=== PATIENT | female | born 1935 | race Caucasian/White ===

== ENCOUNTER 2020-07-13 15:39 | Emergency (ER) | payer MEDICARE, SELFPAY ==
--- NOTE | ~2020-07-13 | CT_ITS ---
EXAMINATION: CT pelvis wo con EXAM DATE: 07/13/2020 16:46 INDICATION: Fall, left sacral pain. Initial encounter. TECHNIQUE: Spiral CT pelvis wo con was performed pelvis Axial, coronal and sagittal images were revi ewed. The dose-length product (DLP) for this examination was 288.82 mGy-cm. The exposure was tailor ed according to patient size (auto mA exposure control), and iterative reconstruction (ASIR) was used as additional dose reduction technique. There is no prior study for comparison. FINDINGS: There are no acute pelvic or sacral fractures or dislocations identified. There is no subc utaneous gas. The soft tissue is unremarkable. There are no radiopaque foreign bodies. Small bila teral inguinal hernias, the right-sided containing nonobstructed small bowel loop. Mildly aneurysmal mid abdominal aorta up to 3.1 cm. There is extensive sigmoid colonic diverticulosis . There is no adjacent inflammatory change to suggest diverticulitis. IMPRESSION: 1. No acute osseous findings. 2. Mildly aneurysmal abdominal aorta. 3. Colonic diverticulosis. Reviewed, dictated and finalized at location A.
[2020-07-13 16:00] VITALS: BP 195/85; PULSE 74; RESP 20; TEMP 36.7; O2SAT 95
--- NOTE | 2020-07-13 16:04 | ED.BACK ---
HPI - Back Pain/Injury General Chief Complaint: Back Pain/Injury Stated Complaint: back pain History of Present Illness HPI Narrative: Historian: patient and daughter. This 85 y.o. female fell on a gravel driveway on 06/29. She was able to walk afterwards. She developed a lot of pain today in the left buttocks, made worse when pressure is applied or she tries to walk. The pain does not radiate down her leg and she has not weakness or numbness in the leg. She was evaluated by Dr. Rivera a week ago who told the family it was a soft tissue injury. Pt does not remember falling. Daughter states that she has chronic high blood pressure; she can tell from the pill box that her mother does not always take her medication. When recently seen by Dr. Rivera her systolic was 207. He encouraged pt. to take her antihypertensive every day. Related Data Home Medications Medication Instructions Recorded Confirmed chlorthalidone 25 mg PO DAILY 07/13/20 07/13/20 irbesartan 150 mg PO DAILY 07/13/20 07/13/20 metoprolol succinate 25 mg PO DAILY 07/13/20 07/13/20 Review of Systems Constitutional: Constitutional: Denies chills and Denies fever(s) Cardiovascular: Cardiovascular: Denies chest pain Respiratory: Respiratory: Denies dyspnea Gastrointestinal: Gastrointestinal: Denies abdominal pain Genitourinary: Genitourinary: Denies dysuria Musculoskeletal: Musculoskeletal: Reports no additional musculoskeletal complaints Neurologic: Denies Normal hearing present (severe hearing loss) [facility] Past Medical History Medical History (Updated 07/14/20 @ 07:55 by Weston Sullivan MD) Back pain Hypertension Social History Social History (Updated 07/14/20 @ 07:46 by Weston Sullivan MD) Living arrangements: alone Additional living arrangements comments: daughter encourages pt. to move into assisted living, pt. refuses. Exam Narrative: Exam Narrative: Very hard of hearing. Daughter had to repeat my questions, which patient sometimes even then didn't understand. Const: Other: Knows place, month and month. HENMT: Mouth: Yes Normal oral and palatal mucosa present Neck: Neck: no lymphadenopathy Chest: Chest palpation & inspection: normal inspection of the chest Resp: Auscultation: clear to auscultation bilaterally Cardio: Rhythm: regular rhythm GI: Other: soft, nontender. Back/Spine/Pelvis: Thoracic/Lumbar Spine: thoracic and lumbar spine normal to inspection Pelvis: buttock tenderness ( see sacrum) on the left Sacrum: tenderness (left lower medial sacral trenderness.) Extrem: Right upper extremity: normal to inspection Left upper extremity: normal to inspection (no greater trochanter or femoral tenderness. ) Course Course Emergency Course: Pt. able to get out of bed and walk. Elevation of blood pressure is not unusual. Pt has no symptoms. Because etiology is likely non-compliance with meds, daughter will check pill box when they get home and administer if pills are there. Vital Signs Vital signs: Vital Signs Temperature 36.7 C 07/13/20 16:00 Pulse Rate 74 07/13/20 16:00 Respiratory Rate 20 07/13/20 16:00 Blood Pressure 195/85 H 07/13/20 16:00 Pulse Oximetry 95 07/13/20 16:00 Temperature 36.7 C 07/13/20 16:00 Pulse Rate 76 07/13/20 17:50 Respiratory Rate 18 07/13/20 17:50 Blood Pressure 204/114 H 07/13/20 17:50 Pulse Oximetry 97 07/13/20 17:50 MDM - Back Pain/Injury MDM Narrative Medical decision making narrative: No evidence of pelvic fx. Etiology of pain likely soft tissue. Pt. encouraged to f/u with Dr. Rivera in 3 -4 days for recheck and possible P.T. Differential Diagnosis Differential diagnosis: Likely lumbar radiculopathy, strain of lumbar region and other (sacral or hip fx, soft tissue injury) Imaging Data Radiologist's impression: CT pelvis IMPRESSION: 1. No acute osseous findings. 2. Mildly aneurysmal abdominal aorta. 3. Colonic diverti
--- NOTE | 2020-07-13 16:15 | PC.NURSE ---
Asked daughter if she knew patient weight or medications which she did not. PCP office is closed.
--- NOTE | 2020-07-13 16:17 | PC.NURSE ---
Attempted to stand patient, she required assistance to stand and is not able to safely stand on a scale for weight
[2020-07-13 17:50] VITALS: BP 204/114; PULSE 76; RESP 18; O2SAT 97
--- NOTE | 2020-07-13 17:59 | PC.NURSE ---
Discharge BP reviewed with ERP who discussed with family. OK to discharge home. Patient denies pain or GARCIA. Family to monitor closely
== END 2020-07-13 18:03 | disposition home or self-care (01) ==
PROVIDERS: Emergency Provider Family Medicine; PCP Family Medicine
DX: S30.0XXA Contusion of lower back and pelvis, initial encounter (principal); I10 Essential (primary) hypertension; W19.XXXA Unspecified fall, initial encounter
CPT/HCPCS: 72192; 99282; 99284

== ENCOUNTER 2020-08-10 12:39 | Emergency (ER) | payer MEDICARE, SELFPAY ==
--- NOTE | ~2020-08-10 | CT_ITS ---
EXAMINATION: CT lumbar spine wo con DATE: 08/10/2020 13:35 INDICATION: Low back pain post fall TECHNIQUE: Computed tomography (CT) of the lumbar spine was performed without intravenous contrast. A utomated exposure control and iterative reconstruction technique were employed. The dose-length produ ct was 425.39 mGy-cm. COMPARISON: None FINDINGS: Alignment 15 degrees lumbar dextroscoliosis measured between L1 and L4. Mild anterior and l eft-sided vertebral body height loss at L3. Nondisplaced fractures of the left and right sacral ala, acute appearing on the left and subacute appearing on the right. Mild right-sided disc height loss at L4-L5. Remaining disc heights are normal. Fusiform infrarenal abdominal aortic aneurysm measuring up to 4.0 cm in maximal diameter. Multiple diverticula along the sigmoid colon without adjacent inflamm atory change to suggest diverticulitis. The following disc levels are specifically discussed: T11-T12: Disc is minimally bulging. There is mild bilateral facet joint osteoarthritis. There is no n eural foraminal stenosis. There is no central canal stenosis. T12-L1: Disc is minimally bulging. There is mild bilateral facet joint osteoarthritis. There is no ne ural foraminal stenosis. There is no central canal stenosis. L1-L2: Disc is bulging. There is mild bilateral facet joint osteoarthritis. There is mild bilateral n eural foraminal stenosis. There is mild central canal stenosis. L2-L3: Disc is bulging. There is mild to moderate bilateral facet joint osteoarthritis. There is mild bilateral neural foraminal stenosis. There is mild central canal stenosis. L3-L4: Disc is bulging. There is mild bilateral facet joint osteoarthritis. There is mild bilateral n eural foraminal stenosis. There is moderate central canal stenosis. L4-L5: Disc is bulging. There is severe bilateral facet joint osteoarthritis. There is mild bilateral neural foraminal stenosis. There is moderate central canal stenosis. L5-S1: Disc is mildly bulging. There is moderate left and severe right facet joint osteoarthritis. Th ere is old right and minimal left neural foraminal stenosis. There is no central canal stenosis. IMPRESSION: 1. Mild lumbar dextroscoliosis with moderate spondylosis. 2. Nondisplaced bilateral sacral alar fractures, acute on the left and subacute appearing on the righ t. When 3. 4.0 cm fusiform infrarenal abdominal aortic aneurysm. Reviewed, dictated and finalized at location A. IMPRESSION: 1. Mild lumbar dextroscoliosis with moderate spondylosis. 2. Nondisplaced bilateral sacral alar fractures, acute on the left and subacute appearing on the right. When 3. 4.0 cm fusiform infrarenal abdominal aortic aneurysm.
--- NOTE | ~2020-08-10 | CT_ITS ---
EXAMINATION: CT pelvis wo con DATE: 08/10/2020 13:34 INDICATION: Pelvic pain post fall TECHNIQUE: High resolution computed tomography (CT) of the pelvis was performed without intravenous c ontrast. Additional sagittal and coronal reconstructions were performed. Automated exposure control a nd iterative reconstruction technique were employed. The dose-length product was 425.39 mGy-cm. COMPARISON: 07/13/2020 FINDINGS: Acute nondisplaced sagittally oriented fracture extending across the left sacral ala. There is increa sed sclerosis and minimal periosteal reaction at the caudal aspect of an additional nondisplaced like ly subacute fracture of the right sacral ala. There are acute fractures at the medial aspect of the l eft superior and inferior pubic rami and intervening left pubic body. There is approximately 1 cm pos terior superior displacement of the left superior pubic ramus relative to the pubic body. Lesser disp lacement at the anterior pubic ramus fracture. There is a hematoma in the extraperitoneal fat along the cephalad margin of the left superior pubic r amus and extending into the thickened left obturator internus muscle. Small to moderate-sized fat-con taining left inguinal hernia. Bladder, uterus and bilateral adnexa are unremarkable. No free intraper itoneal gas or fluid in the pelvis. There are scattered diverticula along the visualized colon withou t adjacent inflammatory change to suggest diverticulitis. No dilated bowel to suggest obstruction. Pa rtially visualized fusiform infrarenal abdominal aortic aneurysm which measures up to 3.7 cm in maxim al diameter. Severe bilateral lower lumbar facet osteoarthritis. IMPRESSION: 1. Nondisplaced bilateral sacral alar fractures, acute appearing on the left and subacute on the righ t. 2. Mildly displaced acute left superior and inferior pubic rami fractures extending through the pubic body with surrounding hematoma. 3. Partially visualized infrarenal abdominal aortic aneurysm measuring at least 3.7 cm in diameter. Reviewed, dictated and finalized at location A. IMPRESSION: 1. Nondisplaced bilateral sacral alar fractures, acute appearing on the left an d subacute on the right. 2. Mildly displaced acute left superior and inferior pubic rami fractures exten ding through the pubic body with surrounding hematoma. 3. Partially visualized infrarenal abdominal aortic aneurysm measuring at least 3.7 cm in diameter.
--- NOTE | 2020-08-10 12:40 | ED.FALL ---
HPI - Fall General Chief Complaint: Fall Stated Complaint: ambulance Time Seen by Provider: 08/10/20 12:40 Source: patient Mode of arrival: EMS Limitations: no limitations and other ([place]) History of Present Illness HPI Narrative: 85-year-old woman brought to the emergency department by EMS today after she was found on the ground. Patient states that she was walking home and hit some uneven sidewalk that caused her to fall. She denies loss of consciousness, chest pain, shortness of breath, nausea or palpitations. She denies hitting her head. complaint: fall Onset (ago): hour(s) (1) Fall from: standing Fall witnessed: no Place fall occurred: street Loss of consciousness: none Prolonged down time: no Symptoms prior to fall: none Context: tripped/slipped Location of injury: pelvis Location of injury - extremities: Left: thigh Severity: moderate Associated symptoms (after fall): unable to walk Related Data Home Medications Medication Instructions Recorded Confirmed chlorthalidone 25 mg PO DAILY 07/13/20 08/10/20 irbesartan 150 mg PO DAILY 07/13/20 08/10/20 metoprolol succinate 25 mg PO DAILY 07/13/20 08/10/20 Allergies Allergy/AdvReac Type Severity Reaction Status Date / Time No Known Allergies Allergy Verified 08/10/20 12:51 Review of Systems Constitutional: Constitutional: Denies chills and Denies fever(s) Cardiovascular: Cardiovascular: Denies chest pain and Denies rapid heart rate Respiratory: Respiratory: Denies cough and Denies dyspnea Gastrointestinal: Gastrointestinal: Denies abdominal pain, Denies nausea and Denies vomiting Genitourinary: Genitourinary: Denies nocturia and Denies dysuria Musculoskeletal: Musculoskeletal: Denies arthralgias and Denies joint swelling Integumentary/Breasts: Skin/Breast: Denies pruritus, Denies erythema and Denies rash Neurologic: Denies vertigo, Denies dizziness and Denies syncope Allergic/Immunologic: Allergic/Immunologic: Reports lip swelling and Reports wheezing PMFSH Past Medical History Medical History Back pain Hypertension Social History Social History Smoking status: Never smoker Alcohol intake: never Substance use: never Living arrangements: alone Additional living arrangements comments: daughter encourages pt. to move into assisted living, pt. refuses. Occupation/Education: retired Exam Const: General: no acute distress and alert Orientation/consciousness: patient oriented x3 Limitations: other limitations ([place]) HENMT: Head: normal to inspection Ears: external ears normal, TM's normal bilaterally and EAC's normal Mouth: Yes moist mucous membranes Throat: posterior oropharynx normal Neck: Neck: normal visual inspection Other: nontender Chest: Chest palpation & inspection: normal inspection of the chest and no tenderness Resp: Effort & Inspection: normal respiratory effort and not labored Auscultation: clear to auscultation bilaterally, no rales, no rhonchi and no wheezes Cardio: Rate: regular rate Rhythm: regular rhythm Heart sounds: Murmur heart sound present systolic GI: Auscultation: normal bowel sounds Other: Nontender, soft, no guarding Skin: General skin exam: normal color, no jaundice and no pallor Rashes: no rashes Other: Tenderness over the sacrum left more than right. There is no swelling or bruising and the skin is intact. There is tenderness with palpation over the pubis particularly on the left side. There is tenderness with compression of the pelvis laterally. No deformities noted. Neuro: General: patient oriented x3, moves all extremities, no focal motor deficits and CN's II-XI intact bilaterally Speech: normal speech Gait exam (Neuro): Normal gait present Extrem: General: normal to inspection and no clubbing, cyanosis or edema Psych: Appearance: grossly normal and well kempt
[2020-08-10 12:43] VITALS: BP 176/80; PULSE 96; RESP 18; TEMP 36.6; O2SAT 96
--- NOTE | 2020-08-10 12:48 | ECG_ITS ---
Measurements Intervals [place] Rate: 73 P: 96 VA: 197 QRS: -70 QRSD: 182 T: 104 QT: 470 QTc: 519 Interpretive Statements SINUS RHYTHM ATRIAL PREMATURE COMPLEX LEFT AXIS DEVIATION LEFT BUNDLE BRANCH BLOCK BASELINE ARTIFACT- I, III, AVL ABNORMAL ECG Electronically Signed On 08-10-2020 13:35:49 CDT by Shlomo Herrera D.O.
[2020-08-10] MEDS: ONDANSETRON INJ 4 MG/2 ML VIAL IV PUSH (13:01)
[2020-08-10] MEDS: MORPHINE SULFATE 2 MG/ML INJ IV PUSH ×2 (13:01→15:00)
[2020-08-10 13:22] LABS: Basophils Absolute Auto 0.03 K/mm3 (0.00-0.10); Basophils Percent Auto 0.3 % (0.0-1.0); Eosinophils Absolute Auto 0.05 K/mm3 (0.02-0.50); Eosinophils Percent Auto 0.5 % (1.0-6.0); Hematocrit 36.4 % (35.0-42.0); Hemoglobin 11.5 g/dL (11.7-13.8); Immature Granulocyte Absolute 0.07 K/mm3 (0.00-0.00); Immature Granulocyte Percent A 0.7 % (0.0-0.0); Lymphocytes Absolute Auto 0.97 K/mm3 (1.10-4.50); Lymphocytes Percent Auto 10.2 % (18.0-42.0); Mean Corpuscular HGB Conc 31.6 g/dL (32.0-36.0); Mean Corpuscular Volume 98.1 fL (78.0-102.0); Mean Platelet Volume 10.9 fl (9.2-11.8); Monocytes Absolute Auto 0.49 K/mm3 (0.10-0.90); Monocytes Percent Auto 5.1 % (2.0-11.0); Neutrophils Absolute Auto 7.9 K/mm3 (1.7-7.2); Neutrophils Percent Auto 83.2 % (50.0-70.0); Platelet Count Result 148 K/mm3 (150-420); Red Blood Count 3.71 M/mm3 (4.20-5.40); Red Cell Distribution Width 13.9 % (11.6-14.4); White Blood Count 9.6 K/mm3 (4.8-10.8)
[2020-08-10 13:33] LABS: Partial Thromboplastin Time 23.4 SEC (22.3-31.6); Prothrombin Time 10.6 Seconds (9.64-11.0)
--- NOTE | 2020-08-10 13:35 | PC.NURSE ---
Pts daughter contacted with pts permission.
[2020-08-10 13:36] LABS: Alanine Aminotransferase 23 U/L (14-59); Albumin Level 3.5 g/dL (3.4-5.0); Alkaline Phosphatase 89 U/L (46-116); Anion Gap 8 mmol/L (8-16); Aspartate Amino Transferase 18 U/L (15-37); Bilirubin,Total 0.4 mg/dL (0.00-1.00); Blood Urea Nitrogen 42 mg/dL (7-18); Calcium 8.6 mg/dL (8.5-10.1); Carbon Dioxide 28 mmol/L (21-32); Chloride 106 mmol/L (98-108); Creatine Kinase 64 U/L (26-192); Estimated CRCL calculation 25 ml/min; Estimated Glomerular Filt Rate 37; Glucose 132 mg/dL (70-99); Osmolality Calculated 306 mOsm/kg (285-295); Potassium 4.5 mmol/L (3.5-5.1); Sodium 142 mmol/L (136-145); Total Protein 7.2 g/dL (6.4-8.2)
[2020-08-10 14:32] VITALS: BP 168/79; PULSE 82; O2SAT 96
--- NOTE | 2020-08-10 14:44 | PC.NURSE ---
Pt and daughter requesting [facility]. Call placed to [place] transfer line.
--- NOTE | 2020-08-10 14:50 | PC.NURSE ---
[facility] has no beds available. [facility] contacted.
--- NOTE | 2020-08-10 14:52 | PC.NURSE ---
Pt now requesting [facility].
[2020-08-10] MEDS: SODIUM CHLORIDE 0.9% IV 1,000 ML 999 ML IV CONT (14:59)
--- NOTE | 2020-08-10 15:04 | PC.NURSE ---
Report To Priya at [facility].
[2020-08-10 15:52] VITALS: BP 170/81; PULSE 87; RESP 18; O2SAT 95
[2020-08-10 16:15] VITALS: BP 166/78; PULSE 82; RESP 16; O2SAT 96
== END 2020-08-10 16:25 | disposition short-term general hospital (02) ==
PROVIDERS: Emergency Provider Emergency Medicine; PCP Family Medicine
DX: S32.82XA Multiple fractures of pelvis without disruption of pelvic ring, initial encounter for closed fracture (principal); I10 Essential (primary) hypertension; W19.XXXA Unspecified fall, initial encounter
CPT/HCPCS: 36415; 72131; 72192; 80053; 82550; 85025; 85610; 85730; 93005; 96361; 96374; 96375; 96376; 99284; 99285; J2270; J2405; J7030